=== PATIENT | female | born 1980 | race Caucasian/White ===

== ENCOUNTER → 2020-08-17 | Outpatient (CLI) | payer OTHER | LOC: LAB 11:41 | PROVIDERS: ATTEND Internal Medicine Cardiovascular Disease | DX: Z01.812 Encounter for preprocedural laboratory examination (principal); Z20.828 Contact with and (suspected) exposure to other viral communicable diseases ==

== ENCOUNTER → 2020-08-23 | Outpatient (CLI) | payer OTHER ==
[~2020-08-23] VITALS: Ht 177.8 cm; Wt 127.0 kg
[~2020-08-23] MED LIST: DUREZOL5 ML RT. EYE; LOTEMAX5 ML LT. EYE; RESTASIS1 EACH RT. EYE; TOPROL XL25 MG PO
--- NOTE | ~2020-08-23 | P ---
[facility] [place] [address] PROCEDURE REPORT Name: KENDAL SHANKAR Room #: REG SHERRIE Field.#: [id number] Admission: 08/23/20 Attend Phys: Oscar Gilbert MD Discharge: Date of : 80 Report #: [id number] THIS REPORT FOR: cc: BON - Alyson family physician/PCP BON - No family physician/PCP Oscar Gilbert MD ~ CC: BON physician/PCP Oscar Gilbert SVT ABLATION PREOPERATIVE DIAGNOSES: 1. Egkpr-Waeujpqpl-Raplq. 2. 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 PROCEDURES PERFORMED: 1. SVT ablation, CPT code 93593. 2. EP with left atrial pacing and recording, CPT code 63409. 3. Program stimulation pacing after IV drug infusion, CPT code 04823. 4. 3D mapping, CPT code 83449. ANESTHESIA: The patient underwent MAC anesthesia with no anesthesia related complications. PROCEDURE: The patient underwent informed consent. We discussed the details of the procedure including the risks, which include but not limited to bleeding, vascular damage, stroke, RI as well as damage to the [place] conduction system requiring permanent pacemaker. She understood these risks and is willing to proceed. The patient was brought to EP laboratory in a fasting and sedated state, prepped and draped in a standard fashion. I obtained access to the right femoral vein x 3, placing 2, 8, 6-Palestinian short sheath and in the left femoral vein, I placed 6 and 7-Palestinian short sheath. Next, under fluoroscopy, I placed 3 quadripolar catheters at the HRA, His and RV positions and decapolar catheter was placed in the coronary sinus. Next, a basic EP study was performed. At baseline, the patient was in sinus rhythm with sinus cycle length of 915 milliseconds, DC interval 130 milliseconds, QRS duration 115 milliseconds, QT interval 445 milliseconds, AH interval 90 milliseconds, and HV interval 0 milliseconds. Next, atrial burst pacing was performed and there was evidence of manifest preexcitation with a left bundle branch block morphology in V1, transitions in V4, negative in leads II, III and aVF and positive in lead 1. Antegrade pathway [facility] [address] [place] [address] PROCEDURE REPORT Name: KENDAL SHANKAR Room #: REG SHERRIE Stew#: [id number] Admission: 08/23/20 Attend Phys: Oscar Gilbert MD Discharge: Date of : 80 Report #: [id number] block was achieved at 320 milliseconds. Aggressive atrial burst pacing was performed, which resulted in atrial fibrillation with the shortest VV interval noted to be 234 milliseconds. This required a 200 joule synchronized cardioversion. Next, ventricular pacing was performed and with ventricular burst pacing again the patient went into atrial fibrillation this time, it terminated on its own after about a minute. Next, ventricular extrastimuli were delivered and accessory pathway effective refractory period was 340 milliseconds at a [address] cycle length and ventricular ERP was noted at 250 milliseconds at a [address] cycle length. Atrial ERP was noted at 310 milliseconds at a [address] cycle length. Given that atrial and ventricular pacing maneuvers resulted in atrial fibrillation, I did not attempt further to induce SVT and given its rapid antegrade conducting properties, we decided to ablate this as it is likely high risk for sudden cardiac . Next, I placed a [employer] SmartTouch ThermoCool ablation catheter in the right atrium and we mapped in sinus rhythm and we saw that there was fusion of the atrial and ventricular signal near the coronary sinus. There were interesting signals both above and below the coronary sinus. I paced the atrium at 500 milliseconds to get manifest preexcitation and it appeared that slightly below the coronary sinus there was fusion of the A and V signals and a nice potential suggestive of an accessory pathway potential. I performed 3 ablation lesions here and then I used a sheath, but there was no termination of accessory pathway. Therefore, I performed additional mapping of the pathway at this time, I performed ventricular pacing and mapping the earliest A and the earliest signal appeared to be arising just above the coronary sinus ostium 30 mm below the His cloud. I performed an initial ablation lesion here, which did not result in termination of the pathway and then I repositioned and found a more interesting signal slightly anterior to where it burned before and at this site, there was termination of the pathway in 5 seconds. I performed ablation here at 35 starr for a total of 90 seconds and a basic EP study was performed. Post-ablation of the pathway, the AH interval was 91 milliseconds, and HV interval was 50 milliseconds with a normal QRS morphology. A basic EP study was performed and AV block was noted at 380 milliseconds. AV serina ERP was noted at 440 milliseconds at a [address] cycle length. VA block was noted at 380 milliseconds. Next, isoproterenol infusion was initiated at 2 mcg per minute and aggressive pacing maneuvers were performed and no other forms of SVT were induced. AV block was noted at 290 milliseconds. VA block was noted at 270 milliseconds. As such, we monitored for a period of 30 minutes and there was no return of accessory pathway and there were no other arrhythmias induced. Therefore, the procedure was concluded. CONCLUSIONS: 1. Successful ablation of an accessory pathway located along the right anterior septum slightly above the coronary sinus ostium. 2. Normal SA serina function. [facility] [address] [place] [address] PROCEDURE REPORT Name: KENDAL SHANKAR Room #: [facility].#: [id number] Admission: 08/23/20 Attend Phys: Oscar Gilbert MD Discharge: Date of : 80 Report #: [id number] 3. Normal AV serina function. 4. Normal His-Purkinje function. 5. No other inducible arrhythmias on or off isoproterenol. By: [id number] Oscar Gilbert MD /nt
[2020-08-23 07:35] LABS: ABSOLUTE NEUTROPHILS 4.4 thou/uL (1.4-8.2); BASOPHILS 0.9 % (0.0-2.0); EOSINOPHILS 3.2 % (0.0-3.0); HEMATOCRIT 38.3 % (37.0-47.0); HEMOGLOBIN 12.8 gm/dL (12.0-15.0); LYMPHOCYTES 24.5 % (24.0-44.0); MCH 29.3 pg (26.0-34.0); MCHC 33.5 g/dL (28.0-37.0); MCV 87.4 fL (80.0-100.0); MONOCYTES 5.9 % (1.0-8.0); PLATELET COUNT 265 thou/uL (150-400); POLYS 65.5 % (36.0-66.0); RBC 4.38 mil/uL (4.20-5.00); RDW 14.1 % (10.5-14.5); WBC 6.7 thou/uL (4.0-11.0)
[2020-08-23 07:40] VITALS: BP 128/77
[2020-08-23 07:56] LABS: CALCIUM 9.3 mg/dL (8.5-10.1); CREATININE 0.8 mg/dL (0.6-1.0); POTASSIUM 3.9 mmol/L (3.5-5.1)
[2020-08-23 07:58] LABS: APTT 28.6 Seconds (24.5-32.8); PROTIME 9.6 Seconds (9.3-11.4)
[2020-08-23 08:02] LABS: ALBUMIN 3.9 g/dL (3.4-5.0); TOTAL BILIRUBIN 0.3 mg/dL (0.2-1.0); TOTAL PROTEIN 7.6 g/dL (6.4-8.2)
== END | disposition home or self-care (01) ==
LOC: CATH 07:01
PROVIDERS: ATTEND Internal Medicine Cardiovascular Disease
DX: I47.1 Supraventricular tachycardia (principal); I45.6 Pre-excitation syndrome; R00.2 Palpitations; G89.29 Other chronic pain; E78.5 Hyperlipidemia, unspecified; E66.01 Morbid (severe) obesity due to excess calories; Z98.890 Other specified postprocedural states; Z79.899 Other long term (current) drug therapy; Z79.01 Long term (current) use of anticoagulants; Z87.891 Personal history of nicotine dependence
CPT/HCPCS: 62110; 62900; 70005